=== PATIENT | male | born 1980 | race Caucasian/White ===

== ENCOUNTER 2021-02-14 16:18 | Emergency (ER) | payer OTHER ==
[~2021-02-14 16:18] MED LIST: BACTROBAN OINT22 GM EXT; IBUPROFEN600 MG PO
[2021-02-14] MEDS ORDERED: CEPHALEXIN500 MG PO (17:25)
== END 2021-02-14 17:40 | disposition home or self-care (01) ==
LOC: ER1 16:18
DX: S61.211A Laceration without foreign body of left index finger without damage to nail, initial encounter (principal); W26.0XXA Contact with knife, initial encounter; Y92.009 Unspecified place in unspecified non-institutional (private) residence as the place of occurrence of the external cause
CPT/HCPCS: 12001; 73130; 99283